=== PATIENT | male | born 1945 | race Caucasian/White ===

== ENCOUNTER 2017-02-22 17:39 | Inpatient (IN) ==
--- NOTE | 2017-02-22 17:49 | Emergency Department Note ---
Disposition Clinical Impression: Chest pain Qualifiers: Chest pain type: unspecified Qualified Code(s): R07.9 - Chest pain, unspecified CAD (coronary artery disease) Qualifiers: Coronary Disease-Associated Artery/Lesion type: [place] artery [place] vs. transplanted heart: [place] heart Associated angina: with unspecified angina Qualified Code(s): I25.119 - Atherosclerotic heart disease of [place] coronary artery with unspecified angina pectoris Disposition: Admitted As Inpatient Condition: Fair Forms: ED Satisfaction Letter Time of Disposition: 18:17 Chest Pain HPI - General Chief Complaint: ED Chest Pain Stated Complaint: chest pain Time Seen by Provider: 02/22/17 17:39 Source: patient Mode of arrival: ambulatory Limitations: no limitations Vital Signs Reviewed: Yes Nursing Notes Reviewed: Yes - History of Present Illness HPI Narrative: 71-year-old male history of hypertension, hyperlipidemia, COPD, CAD status post stents 2 in 2003, patient presented with chest pain at rest, he said chest pain in his left chest area crampy, 8/10 lasted for 3 hours earlier this morning , resolved about an hour ago prior to transfer. Has had pain for 3 days on and off. Patient was given aspirin 325 mg today at the [facility], he had a troponin and EKG EKG showed no ischemic changes, his troponin was 0.0 about an hour ago, patient has currently chest pain-free, he rates his pain to arthritis , denies shortness of breath dizziness or nausea or vomiting accompanied with chest pain. States this is not like his previous [place]. Denies any abdominal pain. Pt complaint: chest pain Onset (ago): day(s) (3) Duration: intermittent Onset: during rest Pain Location: left chest Severity: now resolved Severity scale (1-10): 0 Pain Radiation: back Improves with: nothing Worsens with: nothing Associated symptoms: Denies: nausea, vomiting, diaphoresis - Related Data Allergies Allergy/AdvReac Type Severity Reaction Status Date / Time ciprofloxacin Allergy Rash Verified 02/22/17 17:45 moxifloxacin Allergy Rash Verified 02/22/17 17:45 Sulfa (Sulfonamide Allergy Rash Verified 02/22/17 17:45 Antibiotics) Review of Systems: All systems were reviewed with historian and negative except as per below, or as documented in the HPI. Constitutional: Denies: fever, chills, weight changes Eyes: Denies: vision changes, eye pain ENT: Denies: nasal congestion, sore throat CV: Reports chest pain Resp: Denies: cough, dyspnea, wheezes, hemoptysis GI: Denies: abdominal pain, N/V/D/C Denies: dysuria, hematuria MSK: Denies: back pain, neck pain, extremity pain Neuro: Denies: BA, weakness Psych: Denies: anxiety, depression All systems ED: reviewed and negative except as stated. Chest Pain PMH - Past Medical History Medical history: Reports: COPD, hyperlipidemia, hypertension - Social History Smoking Status: Former smoker Alcohol use: Reports: none Drug use: Reports: none Physical Exam Constitutional: alert and oriented, in NAD, vital signs reviewed and wnl Neck: normal inspection, neck is supple, trachea midline Resp: normal chest inspection, CTA bilaterally, no resp distress CV: RRR, no m/g/r GI: normal inspection, Soft, NTND, BS present Back: normal inspection, no tenderness to palpation Neuro: A&O3, no gross motor or sensory deficits bilaterally MSK: normal inspection, bilateral UE and LE with normal ROM Psych: normal mood, normal affect Skin: No rashes, skin warm, dry, intact Course Course Narrative: 71-year-old male with history of CAD status post 2 stents, hypertension hyperlipidemia, presents with chest pain at rest, lasted for 3 hours has been intermittent for the last 3 days, his troponin was 0.0, not had a recent left heart catheter, interventions for stents were in 2003, patient was given aspirin at the outside facility, troponin was checked at 0.0 at 1600, plan for admission trending troponins, cardiac workup. - Reevaluation(s) Reevaluation #1: ADmitted to [facility] [employer] in stable condition,chest pain free currently, will review BMP and CBC prior to floor arrival. Trop negative initial at [place] Vital Signs Temperature 98.6 F 02/22/17 17:39 Pulse Rate 89 02/22/17 17:39 Respiratory Rate 18 02/22/17 17:39 Blood Pressure 150/98 02/22/17 17:39 O2 Sat by Pulse Oximetry 95 02/22/17 17:39 Temperature 98.6 F 02/22/17 17:39 Pulse Rate 81 02/22/17 18:12 Respiratory Rate 18 02/22/17 18:12 Blood Pressure 127/79 02/22/17 18:12 O2 Sat by Pulse Oximetry 97 02/22/17 18:12 Chest Pain - MDM Narrative Medical decision making narrative: 71-year-old male with a heart score of 5, chest pain at rest now resolved, given aspirin, admitted on the [place] to the hospitalist service in stable condition - Differential Diagnosis Likely: pneumothorax, stable angina, unstable angina pectoris, atypical chest pain, chest pain - Medical Records Medical records reviewed: Yes I reviewed the patient's medical records. - Lab Data Lab results reviewed: Yes I reviewed the patient's lab results. - Radiology Data Radiology results reviewed: Yes I reviewed the patient's radiology results. - EKG Data EKG attestation: Yes I reviewed and interpreted this EKG. EKG results narrative: 85 bpm VT 156 QRS [address] segment elevations or depressions, Rate: normal Rhythm: NSR [place]/QRS: normal Interpretation: no acute changes, normal EKG - Core Measures AMI Core Measures Followed: Yes ([facility] by [facility]) Heart Score - Score History: Moderately Suspicious EKG: Normal Age: Greater than 65 Risk Factors: Equal/Greater than 3 risk factor or history of atherosclerotic disease Troponin: Less than normal limit HEART Score Total: 5
[2017-02-22 18:35] LABS: BUN/Creatinine Ratio 15 (6-26); Blood Urea Nitrogen 19 mg/dL (8-26); Calcium 10.5 mg/dL (8.6-10.8); Carbon Dioxide 28 mEq/L (19-29); Chloride 103 mEq/L (98-109); Glucose 102 mg/dL (70-99); Osmolality,Calculated 294 (280-300); Potassium 4.5 mEq/L (3.5-4.5); Sodium 141 mEq/L (136-145); eGFR For African Americans > 60 (> 60); eGFR For Non-African Americans 57 (> 60)
[2017-02-22 18:38] LABS: Basophils # 0.1 K/mcL (0.0-0.2); Basophils % 0.7 %; Eosinophils # 0.2 K/mcL (0.0-0.6); Eosinophils % 1.7 %; Hematocrit 51.8 % (37.5-50.1); Hemoglobin 17.2 g/dL (12.9-16.9); Immature Granulocytes % 0.5 % (0-4); Lymphocytes # 3.6 K/mcL (0.6-4.6); Lymphocytes % 34.6 %; Mean Corpuscular HGB Conc 33.2 g/dL (31.6-35.5); Mean Corpuscular Hemoglobin 30.9 pg (28.0-33.3); Mean Platelet Volume 9.3 fL (9.4-12.4); Monocytes # 0.9 K/mcL (0.0-1.3); Monocytes % 8.7 %; Neutrophils # 5.5 K/mcL (1.6-8.9); Platelet Count 246 K/mcL (140-400); Red Blood Count 5.57 M/mcL (4.19-5.50); Red Cell Distribution Width 14.1 % (11.5-14.5); Segmented Neutrophils % 53.8 %
[2017-02-22] MEDS ORDERED: Naloxone 0.4 MG/ML INJ IVP PRN (20:06)
[2017-02-22] MEDS ORDERED: Acetaminophen 325 MG TABLET PO PRN (20:06)
[2017-02-22] MEDS: Gabapentin 100 MG CAPSULE PO SCH (20:49)
[2017-02-22] MEDS: Methocarbamol 750 MG TABLET PO SCH (20:50)
--- NOTE | 2017-02-22 21:29 | Internal Med History&Physical ---
Date of Encounter: 02/22/17 Time of Encounter: 21:27 Assessment and Plan (1) Chest pain Current visit: Yes Status: Acute Patient presents with chest pain radiating to left shoulder described as an ache. Initial troponin negative at 0.0. EKG without ischemic changes. He has a history of CAD with stents placed in 2003, HTN, and is a smoker. Continuous desk monitor serial troponins stress test and echocardiogram in the morning. Qualifiers: Chest pain type: unspecified Qualified Code(s): R07.9 - Chest pain, unspecified (2) COPD (chronic obstructive pulmonary disease) Current visit: Yes Status: Acute Patient with emphysema. Denies any coughing or increased shortness of breath, not in exacerbation. Wheezing on exam. Duoneb treatments QID albuterol inhaler PRN budesonide/fomotorol BID Qualifiers: COPD type: emphysema Emphysema type: unspecified Qualified Code(s): J43.9 - Emphysema, unspecified (3) Smoker Current visit: Yes Status: Acute Patient continues to smoke 2PPD despite COPD and cardiovascular disease. Discussed smoking cessation and offered encouragement. Patient denied nicotine patch. smoking cessation education ordered. (4) DVT prophylaxis Current visit: Yes Status: Acute anti-embolic stockings lovenox 40mg SQ daily Internal Medicine - H&P: HPI Chief complaint: chest pain Admitted From: Emergency Dept Plans for Post Hospital Care: Home History of present illness: Mr. Luna is a 71 year old male with hypertension, hyperlipidemia, COPD, coronary artery disease status post stent placement in 2003 presented to the emergency department today from the [place] with complaints of chest pain. Patient reports he first noticed the pain about 3 days ago describes it as an ache radiating from the left side of his chest to his left shoulder, describes it as constant, aching. Patient was given 325 mg of aspirin in the ER with improvement in pain. Denies any headache, lightheadedness, palpitations, increased shortness of breath, numbness or tingling. Evaluation in the emergency department included EKG which showed no ischemic changes, troponin was negative at 0.0, chest x-ray showed no active cardiopulmonary disease. On exam, patient alert and oriented, in no acute distress. Heart has regular rate and rhythm, lungs with diffuse mild wheezes. Past Med Surg Social Fam HX - Past Medical History Medical history: COPD, coronary artery disease, hyperlipidemia, hypertension - Past Surgical History Surgical History: angioplasty/stent - Social History Smoking Status: Current every day smoker Packs per day: 2 Smokeless Tobacco Status: No Alcohol use: none Drug use: none - Family History Mother Age: 61 Living Status: Age at : 61 Cause of : [place] Hx Family Cardiac Disorders: Yes Hx Family Respiratory Disorders: Yes Hx Family Cancer: No Hx Family GI Disorders: No Hx Family Genitourinary Disorders: No Hx Family Endocrine Disorder: No Hx Family Musculoskeletal Disorders: No Hx Family Neuromuscular Disorders: No Hx Family Neurologic Disorders: No Hx Family HEENT Disorders: No Hx Family Autoimmune Disorders: No Hx Family Reproductive Disorders: No Hx Family Psychosocial Disorders: No Hx Family Medical Disorders: No Internal Medicine - H&P: Meds Albuterol Sulfate [Albuterol Inhaler] 2 puff IH QID PRN 02/22/17 [History] Aspirin Enteric Coated [Aspirin EC] 162 mg PO DAILY 02/22/17 [History] Atorvastatin [Lipitor] 40 mg PO HS 02/22/17 [History] Budesonide/Formoterol 160/4.5 [Symbicort 160/4.5] 1 puff IH BIDR 02/22/17 [ History] Cholecalciferol (D-3) [Vitamin D] 2,000 unit PO DAILY 02/22/17 [History] Citalopram Hydrobromide [Citalopram HBr] 40 mg PO QAM 02/22/17 [History] Finasteride [Proscar] 5 mg PO DAILY 02/22/17 [History] Gabapentin [Neurontin] 100 mg PO TID 02/22/17 [History] GuaiFENesin/Dextromethorphan [Tussin Dm Syrup] 10 ml PO Q4H PRN 02/22/17 [ History] Ipratropium [Atrovent Inhaler] 2 puff IH QID 02/22/17 [History] Lisinopril 2.5 mg PO DAILY 02/22/17 [History] Loratadine [Claritin] 10 mg PO DAILY 02/22/17 [History] Methocarbamol [Robaxin-750] 1,500 mg PO BID 02/22/17 [History] Multivitamin [Multi-Day Vitamins] 1 each PO DAILY 02/22/17 [History] Nortriptyline HCl 50 mg PO HS 02/22/17 [History] [place]-3/Dha/Epa/Fish Oil [Fish Oil 1,000 mg Softgel] 1,000 mg PO BID 02/22/17 [ History] Omeprazole [PriLOSEC] 20 mg PO DAILY 02/22/17 [History] Propylene Glycol/Peg 400 [Systane 0.3-0.4% Eye Drops] 1 drop OP QID PRN [History] Topiramate [Topamax] 12.5 mg PO TID PRN 02/22/17 [History] Allergies ciprofloxacin Allergy (Verified 02/22/17 17:45) Rash moxifloxacin Allergy (Verified 02/22/17 17:45) Rash Sulfa (Sulfonamide Antibiotics) Allergy (Verified 02/22/17 17:45) Rash All Systems PM: A 10-system review of systems was performed and is negative for pertinent findings except as documented above in the HPI. - Constitutional Constitutional: no chills, no fever(s), no night sweats - EENT Eyes: no change in vision, no discharge, no pain, no photophobia Ears: no ear discharge, no ear pain, no tinnitus Nose, mouth and throat: no dysphagia, no nasal discharge, no neck pain, no sore throat - Cardiovascular Cardiovascular ROS IM: chest pain, no diaphoresis, no dyspnea, no lightheadedness, no palpitations, no syncope - Respiratory Respiratory: wheezing, no cough, no dyspnea, no excessive phlegm production - Gastrointestinal Gastrointestinal: no abdominal pain, no diarrhea, no hematemesis, no hematochezia, no melena, no nausea, no vomiting - Musculoskeletal Musculoskeletal ROS IM: no numbness, no tingling - Integumentary Integumentary IM: no rash, no unusual bruising - Neurological Neurological ROS: no confusion, no convulsions, no focal weakness, no numbness, no tingling, no tremor(s) - Hematologic/Lymphatic Hematologic/Lymphatic: no easy bruising - Constitutional Vitals: Temp Pulse Resp BP Pulse Ox 98.6 F 86 16 152/86 94 02/22/17 20:06 02/22/17 20:06 02/22/17 20:06 02/22/17 20:06 02/22/17 20:06 General appearance: Present: A&O X 3, pleasant, no acute distress - Head Head exam: Present: atraumatic, normocephalic - Eye Eye exam: Present: PERRL, conjuntiva pink, sclera anicteric Pupils: Present: PERRL - Neck Neck exam general surgery: Present: supple, trachea midline. Absent: lymphadenopathy - Respiratory Respiratory exam: Present: wheezes. Absent: accessory muscle use, rales, rhonchi - Cardiovascular Cardiovascular exam: Present: RRR, +S1, +S2. Absent: diastolic murmur, gallop, rubs, systolic murmur - GI/Abdominal GI/Abdominal exam: Present: normal bowel sounds, soft, no peritoneal signs. Absent: distended, tenderness - Extremities Exam Extremities exam: Present: warm, radial pulses palpable and symetrical. Absent : calf tenderness, cyanotic, pedal edema - Neurological Exam Neurological exam: Present: CN II-XII intact, oriented X3, no focal deficits. Absent: facial droop, speech deficit - Skin Skin exam: Present: dry, intact Internal Med - H&P Results - Labs CBC & Chem 7: 02/22/17 18:15 02/22/17 18:15 Labs: All Lab Results (24 Hours) 02/22/17 02/22/17 Range/Units 18:15 18:15 WBC 10.3 (4.3-11.1) K/mcL RBC 5.57 H (4.19-5.50) M/mcL Hgb 17.2 H (12.9-16.9) g/dL Hct 51.8 H (37.5-50.1) % MCV 93.0 (83.0-100.0) fL MCH 30.9 (28.0-33.3) pg MCHC 33.2 (31.6-35.5) g/dL RDW 14.1 (11.5-14.5) % Plt Count 246 (140-400) K/mcL MPV 9.3 L (9.4-12.4) fL Immature Gran % 0.5 (0-4) % Seg Neutrophils % 53.8 % Lymphocytes % 34.6 % Monocytes % 8.7 % Eosinophils % 1.7 % Basophils % 0.7 % Neutrophils # 5.5 (1.6-8.9) K/mcL Lymphocytes # 3.6 (0.6-4.6) K/mcL Monocytes # 0.9 (0.0-1.3) K/mcL Eosinophils # 0.2 (0.0-0.6) K/mcL Basophils # 0.1 (0.0-0.2) K/mcL Sodium 141 (136-145) mEq/L Potassium 4.5 (3.5-4.5) mEq/L Chloride 103 (98-109) mEq/L Carbon Dioxide 28 (19-29) mEq/L BUN 19 (8-26) mg/dL Creatinine 1.26 H (0.72-1.25) mg/dL Est GFR ( Amer) > 60 (> 60) Est GFR (Non-Af Amer) 57 L (> 60) BUN/Creatinine Ratio 15 (6-26) Glucose 102 H (70-99) mg/dL Calculated Osmolality 294 (280-300) Calcium 10.5 (8.6-10.8) mg/dL - Diagnostic Studies Chest x-ray Additional comments: Chest X-Ray 02/22/17 17:46 IMPRESSION: 1. No active pulmonary disease. D/ / Madan Landa MD / Madan Landa MD Interpreting Provider: Madan Landa MD
--- NOTE | 2017-02-22 21:42 | Event Note ---
Date of Encounter: 02/22/17 Time of Encounter: 21:41 Patient seen and examined with nurse practitioner. Agree with this assessment and plan. Patients with history of coronary RCC status post PCI 2003 presents with chest pain with some typical features. EKG without ischemic changes and initial troponin is normal. Will do serial cardiac markers. iF TROPONIN are all negative patient will have a pharmacological stress test tomorrow.
[2017-02-22] MEDS: Budesonide/Formoterol 160/4.5 MDI IH SCH (22:04)
[2017-02-22] MEDS: Ipratropium/Albuterol Neb 3 ML IH SCH (22:04)
[2017-02-23 04:03] LABS: Basophils # 0.1 K/mcL (0.0-0.2); Basophils % 0.6 %; Eosinophils # 0.3 K/mcL (0.0-0.6); Hematocrit 48.2 % (37.5-50.1); Hemoglobin 15.7 g/dL (12.9-16.9); Immature Granulocytes % 0.4 % (0-4); Lymphocytes # 4.6 K/mcL (0.6-4.6); Lymphocytes % 42.3 %; Mean Corpuscular HGB Conc 32.6 g/dL (31.6-35.5); Mean Corpuscular Hemoglobin 30.1 pg (28.0-33.3); Mean Corpuscular Volume 92.5 fL (83.0-100.0); Mean Platelet Volume 9.1 fL (9.4-12.4); Monocytes # 1.1 K/mcL (0.0-1.3); Monocytes % 9.9 %; Neutrophils # 4.8 K/mcL (1.6-8.9); Platelet Count 223 K/mcL (140-400); Red Blood Count 5.21 M/mcL (4.19-5.50); Segmented Neutrophils % 43.8 %
[2017-02-23 04:16] LABS: BUN/Creatinine Ratio 16 (6-26); Blood Urea Nitrogen 20 mg/dL (8-26); Calcium 9.6 mg/dL (8.6-10.8); Carbon Dioxide 24 mEq/L (19-29); Chloride 108 mEq/L (98-109); Chol/HDL Ratio 5.3 (0-4.9); Cholesterol 192 mg/dL (< 200); Glucose 89 mg/dL (70-99); HDL Cholesterol 36 mg/dL (40-59); LDL Cholesterol,Calculated 105 mg/dL (0-99); Osmolality,Calculated 294 (280-300); Potassium 3.9 mEq/L (3.5-4.5); Sodium 141 mEq/L (136-145); Triglycerides 257 mg/dL (< 150); eGFR For African Americans > 60 (> 60); eGFR For Non-African Americans 57 (> 60)
[2017-02-23] MEDS: Ipratropium/Albuterol Neb 3 ML IH SCH ×2 (04:30→11:46)
[2017-02-23] MEDS ORDERED: Regadenoson 0.4 MG/5 ML SYRINGE IVP ONE (06:47)
[2017-02-23] MEDS ORDERED: *HR* Enoxaparin 40 MG/0.4 ML SYRINGE SQ SCH (07:00)
--- NOTE | 2017-02-23 08:41 | Discharge Summary ---
Date of Encounter: 02/23/17 Time of Encounter: 13:40 - Discharge Diagnosis (1) Hypertriglyceridemia without hypercholesterolemia Priority: Secondary Status: Acute (2) Chest pain Priority: Primary Status: Acute Qualifiers: Chest pain type: unspecified Qualified Code(s): R07.9 - Chest pain, unspecified (3) CAD (coronary artery disease) Priority: Secondary Status: Acute Qualifiers: Coronary Disease-Associated Artery/Lesion type: [place] artery [place] vs. transplanted heart: [place] heart Associated angina: angina presence unspecified Qualified Code(s): I25.10 - Atherosclerotic heart disease of [place] coronary artery without angina pectoris (4) COPD (chronic obstructive pulmonary disease) Priority: Secondary Status: Acute Qualifiers: COPD type: emphysema Emphysema type: unspecified Qualified Code(s): J43.9 - Emphysema, unspecified (5) Smoker Priority: Secondary Status: Acute (6) DVT prophylaxis Priority: Secondary Status: Acute - Discharge Medications Home Medications: Albuterol Sulfate [Albuterol Inhaler] 2 puff IH QID PRN 02/22/17 [History] Aspirin Enteric Coated [Aspirin EC] 162 mg PO DAILY 02/22/17 [History] Atorvastatin [Lipitor] 40 mg PO HS 02/22/17 [History] Budesonide/Formoterol 160/4.5 [Symbicort 160/4.5] 1 puff IH BIDR 02/22/17 [ History] Cholecalciferol (D-3) [Vitamin D] 2,000 unit PO DAILY 02/22/17 [History] Citalopram Hydrobromide [Citalopram HBr] 40 mg PO QAM 02/22/17 [History] Finasteride [Proscar] 5 mg PO DAILY 02/22/17 [History] Gabapentin [Neurontin] 100 mg PO TID 02/22/17 [History] GuaiFENesin/Dextromethorphan [Tussin Dm Syrup] 10 ml PO Q4H PRN 02/22/17 [ History] Ipratropium [Atrovent Inhaler] 2 puff IH QID 02/22/17 [History] Lisinopril 2.5 mg PO DAILY 02/22/17 [History] Loratadine [Claritin] 10 mg PO DAILY 02/22/17 [History] Methocarbamol [Robaxin-750] 1,500 mg PO BID 02/22/17 [History] Multivitamin [Multi-Day Vitamins] 1 each PO DAILY 02/22/17 [History] Nortriptyline HCl 50 mg PO HS 02/22/17 [History] [place]-3/Dha/Epa/Fish Oil [Fish Oil 1,000 mg Softgel] 1,000 mg PO BID 02/22/17 [ History] Omeprazole [PriLOSEC] 20 mg PO DAILY 02/22/17 [History] Propylene Glycol/Peg 400 [Systane 0.3-0.4% Eye Drops] 1 drop OP QID PRN [History] Topiramate [Topamax] 12.5 mg PO TID PRN 02/22/17 [History] Allergies/Adverse Reactions: Allergies ciprofloxacin Allergy (Verified 02/22/17 17:45) Rash moxifloxacin Allergy (Verified 02/22/17 17:45) Rash Sulfa (Sulfonamide Antibiotics) Allergy (Verified 02/22/17 17:45) Rash Procedures/tests Complete & Pending: Procedures Performed prior 72 hours Category Date Time Status NM rosalio perf SPECT multi [NM] Routine Exams 02/22/17 20:11 Ordered EV echocardiogram Routine Y 02/22/17 20:10 Ordered SP pharm nuclear stress Routine Y 02/23/17 20:10 Ordered Date of admission: 02/22/17 18:35 [facility] care [facility] Discharging clinician: Mojgan Villarreal Anticipated date of discharge: 02/23/17 - Patient Status Disposition: Home, Self-Care Overall status at discharge: patient is back to baseline - Discharge Instructions Follow Up With: [facility],PCP [Primary Care Provider] - - Diet and Activity Activity: resume usual activities as tolerated Diet: advance to your usual diet, low fat, low cholesterol, low salt diet Interval History: Mr. Syd Luna was admitted for chest pain. His EKG and troponin series series was negative. He underwent cardiac stress test this morning. His planned to be discharged if stress test is negative. His triglycerides are elevated and he is advised to watch his diet. Counseling provided. Triglyceride to be repeated in 2-3 months and if still continues to be high and he should consult his family doctor to make further plans so that it can be brought back to normal. Her echocardiogram showed EF 6 more than 60% without any valvular abnormality or any wall motion abnormality. Mild diastolic dysfunction present. The stress Myoview test showed normal perfusion. Hospital course: Mr. Luna is a 71 year old male - Time Spent with Patient Total time spent providing and/or coordinating discharge services: Less than 30 minutes - Constitutional Vitals: Temp Pulse Resp BP Pulse Ox 98.5 F 68 16 108/67 95 02/23/17 06:33 02/23/17 06:33 02/23/17 06:33 02/23/17 06:33 02/23/17 06:33 General appearance: Present: A&O X 3, pleasant, no acute distress - Head Head exam: Present: atraumatic, normocephalic - Eye Eye exam: Present: PERRL, conjuntiva pink, sclera anicteric Pupils: Present: PERRL - Neck Neck exam general surgery: Present: supple, trachea midline. Absent: lymphadenopathy - Respiratory Respiratory exam: Present: CTAB. Absent: accessory muscle use, rales, rhonchi, wheezes - Cardiovascular Cardiovascular exam: Present: RRR, +S1, +S2. Absent: diastolic murmur, gallop, rubs, systolic murmur - GI/Abdominal GI/Abdominal exam: Present: normal bowel sounds, soft, no peritoneal signs. Absent: distended, tenderness - Extremities Exam Extremities exam: Present: warm, radial pulses palpable and symetrical. Absent : calf tenderness, cyanotic, pedal edema - Neurological Exam Neurological exam: Present: CN II-XII intact, oriented X3, no focal deficits. Absent: pronater drift, facial droop, speech deficit - Skin Skin exam: Present: dry, intact
[2017-02-23] MEDS ORDERED: Aspirin Enteric Coated 81 MG Tablet PO SCH (09:00)
[2017-02-23] MEDS ORDERED: Loratadine 10 MG TABLET PO SCH (09:00)
[2017-02-23] MEDS ORDERED: Finasteride 5 MG TABLET PO SCH (09:00)
--- NOTE | 2017-02-23 11:02 | Nuclear Medicine Stress Report ---
Regadenoson Nuclear Stress Name: Syd Luna Date of Study: 02/23/2017 Date: 1945 Ht: 69.0 in Medical Record#: [id number] Age: 71 Wt: 163.0 lb Gender: Male Order #: [id number] Location: [facility] Room: [facility] Supervising Provider: Arturo Rizvi CNP Reading Physician: Ludwig Mercado DO, FAC, [facility] Ordering Physician: Mojgan Villarreal MD Primary Care Physician: [facility] Stress Technologist: Sarah Kwong RRT [place] Erector: Quinn [place] Indications: Chest Pain Impression: Pharmacologic stress ECG is negative for ischemia at level of heart rate achieved. Gated EF > 70%. Medium sized, mild to moderate intensity, fixed inferior perfusion defect. Wall motion is normal. These findings are consistent with artifact. Perfusion imaging was negative for ischemia or infarct. History: Hypertension Hypercholesteremia History of Smoking Prior PCI Stress Test Summary: Stress Test Type: Pharmacologic Regadenoson 0.4mg/5ml given IV Baseline Information: Initial Heart Rate: 74 Blood Pressure: 130/74 Stress Information: Test Terminated Due to (primary): As per protocol Maximum Blood Pressure: 128/70 Maximum Heart Rate: 101 Percent Maximum Heart Rate Achieved: 67 Double Product: [id number] METS Reached: 1 Symptoms: No chest symptoms Nuclear Summary: SPECT myocardial perfusion imaging using Tc99m Sestamibi given intravenously was performed at rest and following cardiac stress testing. The resting images were obtained following initial dose of 11.6 mCi. Following stress an additional dose of 34.8 mCi was given at peak exercise or 30 seconds post regadenoson infusion. Medication Given: Time Medication Dose Units Route Findings: Stress Note * Resting ECG demonstrated normal sinus rhythm. * No baseline arrhythmias were noted. * Pharmacologic stress ECG is negative for ischemia at level of heart rate achieved. * No arrhythmias were noted during stress. * Patient had no chest pain during stress. * Normal hemodynamic responses to pharmacologic stress. Study Quality * Study quality is average. Gated EF > 70% * Gated EF > 70%. Left Ventricle * The left ventricle is not dilated. LVEDV = 60 mL. * Normal wall motion. Inferior Perfusion Rest * The inferior segments show a mild to moderate reduction in perfusion. Inferior Perfusion Stress * The inferior segments show a mild to moderate reduction in perfusion. TID * No evidence of transient ischemic dilatation. TID ratio = 0.97. Lung Uptake * There is no evidence of increase lung uptake. Updated by Ludwig Mercado DO, BAYLEE, XIMENA, APOLONIA on 02/23/2017 10:58:21 AM electronically signed on 02/23/2017 10:59:52 AM with status of Final
[2017-02-23] MEDS: Gabapentin 100 MG CAPSULE PO SCH (11:36)
[2017-02-23] MEDS: Methocarbamol 750 MG TABLET PO SCH (11:37)
[2017-02-23] MEDS: Budesonide/Formoterol 160/4.5 MDI IH SCH (11:45)
[2017-02-23 12:13] VITALS: BP 105/64
== END 2017-02-23 14:49 | disposition home or self-care (01) | DRG 313 ==
LOC: EMEROO 17:39 → 3NENU 18:35
PROVIDERS: ADMIT Nurse Practitioner Family; ATTEND Internal Medicine

== ENCOUNTER 2021-05-12 18:19 | Observation (INO) ==
[2021-05-12] MEDS ORDERED: methylPREDNISolone 125 MG/2 ML VIAL IVP ONE (18:42)
[2021-05-12] MEDS ORDERED: 0.9 % Sodium Chloride 1,000 ML IVC ONE (18:42)
[2021-05-12] MEDS ORDERED: Ipratropium/Albuterol Neb 3 ML IH ONE (18:42)
[2021-05-12 19:06] LABS: Basophils # 0.1 K/mcL (0.0-0.2); Basophils % 0.8 %; Eosinophils # 0.2 K/mcL (0.0-0.6); Hemoglobin 16.1 g/dL (12.9-16.9); Immature Granulocytes % 0.5 % (0-4); Lymphocytes # 2.8 K/mcL (0.6-4.6); Lymphocytes % 26.1 %; Mean Corpuscular HGB Conc 32.2 g/dL (31.6-35.5); Mean Corpuscular Hemoglobin 29.8 pg (28.0-33.3); Mean Corpuscular Volume 92.6 fL (83.0-100.0); Mean Platelet Volume 9.1 fL (9.4-12.4); Monocytes # 0.9 K/mcL (0.0-1.3); Monocytes % 8.9 %; Neutrophils # 6.6 K/mcL (1.6-8.9); Platelet Count 267 K/mcL (140-400); Red Cell Distribution Width 14.4 % (11.5-14.5); Segmented Neutrophils % 61.7 %; White Blood Count 10.6 K/mcL (4.3-11.1)
[2021-05-12 19:35] LABS: Alanine Aminotransferase 10 Units/L (7-52); Albumin 4.1 g/dL (3.5-5.7); Albumin/Globulin Ratio 1.2 (1.1-2.2); Alkaline Phosphatase 69 Units/L (34-104); Aspartate Amino Transferase 12 Units/L (13-39); BUN/Creatinine Ratio 9 (6-26); Bilirubin,Direct 0.1 mg/dL (0.0-0.2); Bilirubin,Indirect 0.4 mg/dL (0.0-1.0); Bilirubin,Total 0.5 mg/dL (0.3-1.0); Blood Urea Nitrogen 11 mg/dL (8-23); Calcium 10.2 mg/dL (8.6-10.3); Carbon Dioxide 27 mEq/L (23-29); Chloride 102 mEq/L (98-107); Globulin 3.4 g/dL (2.4-3.5); Glucose 101 mg/dL (70-105); Osmolality,Calculated 286 (280-300); Potassium 4.2 mEq/L (3.5-5.1); Sodium 138 mEq/L (136-145); Total Protein 7.5 g/dL (6.4-8.9); Troponin I < 0.03 ng/mL (< 0.04); eGFR For African Americans > 60 (> 60); eGFR For Non-African Americans 60 (> 60)
[2021-05-12 20:20] LABS: Adenovirus Not Detected (Not Detect); Bordetella Pertussis Not Detected (Not Detect); Chlamydophila pneumoniae Not Detected (Not Detect); Coronavirus 229E Not Detected (Not Detect); Coronavirus HKU1 Not Detected (Not Detect); Coronavirus NL63 Not Detected (Not Detect); Coronavirus OC43 Not Detected (Not Detect); Human Metapneumovirus Not Detected (Not Detect); Human Rhinovirus/Enterovirus Not Detected (Not Detect); Influenza A Subtype 2009 H1 Not Detected (Not Detect); Influenza B Not Detected (Not Detect); Mycoplasma pneumoniae Not Detected (Not Detect); Parainfluenza Virus 1 Not Detected (Not Detect); Parainfluenza Virus 2 Not Detected (Not Detect); Parainfluenza Virus 3 Not Detected (Not Detect); Parainfluenza Virus 4 Not Detected (Not Detect); Respiratory Syncytial Virus Not Detected (Not Detect); SARS-CoV-2 Not Detected (Not Detect)
[2021-05-12] MEDS ORDERED: Acetaminophen 325 MG TABLET PO PRN (21:44)
[2021-05-12] MEDS ORDERED: Naloxone 0.4 MG/ML INJ IVP PRN (21:44)
[2021-05-12] MEDS ORDERED: Ondansetron 4 MG/2 ML VIAL IVP PRN (21:44)
[2021-05-12] MEDS ORDERED: *HR* HYDROcodone/Acet 5/325 mg TABLET PO PRN (21:44)
[2021-05-12] MEDS: Ipratropium/Albuterol Neb 3 ML IH SCH (22:30)
[2021-05-12] MEDS: *HR* Heparin 5,000 UNIT/ML VIAL SQ SCH (23:22)
[2021-05-13 02:51] LABS: Basophils % 0.4 %; Hematocrit 48.9 % (37.5-50.1); Hemoglobin 15.7 g/dL (12.9-16.9); Immature Granulocytes % 0.5 % (0-4); Lymphocytes # 1.2 K/mcL (0.6-4.6); Lymphocytes % 16.2 %; Mean Corpuscular HGB Conc 32.1 g/dL (31.6-35.5); Mean Corpuscular Hemoglobin 29.3 pg (28.0-33.3); Mean Corpuscular Volume 91.2 fL (83.0-100.0); Mean Platelet Volume 9.2 fL (9.4-12.4); Monocytes # 0.1 K/mcL (0.0-1.3); Monocytes % 0.7 %; Neutrophils # 6.2 K/mcL (1.6-8.9); Platelet Count 256 K/mcL (140-400); Red Blood Count 5.36 M/mcL (4.19-5.50); Red Cell Distribution Width 14.1 % (11.5-14.5); Segmented Neutrophils % 82.2 %; White Blood Count 7.5 K/mcL (4.3-11.1)
[2021-05-13 02:57] LABS: INR 1.2; Prothrombin Time 13.5 Seconds (9.4-12.1)
[2021-05-13 03:00] LABS: Activated Partial Thrombo Time 38.3 Seconds (26.0-36.0)
[2021-05-13 03:10] LABS: BUN/Creatinine Ratio 12 (6-26); Blood Urea Nitrogen 14 mg/dL (8-23); Calcium 9.8 mg/dL (8.6-10.3); Carbon Dioxide 24 mEq/L (23-29); Chloride 104 mEq/L (98-107); Glucose 165 mg/dL (70-105); Magnesium 1.6 mg/dL (1.6-2.6); Osmolality,Calculated 288 (280-300); Phosphorous 2.5 mg/dL (2.7-4.5); Potassium 4.1 mEq/L (3.5-5.1); Sodium 137 mEq/L (136-145); eGFR For African Americans > 60 (> 60); eGFR For Non-African Americans > 60 (> 60)
[2021-05-13] MEDS: Ipratropium/Albuterol Neb 3 ML IH SCH ×4 (04:07→21:58)
[2021-05-13] MEDS: *HR* Heparin 5,000 UNIT/ML VIAL SQ SCH ×3 (05:05→20:37)
[2021-05-13] MEDS ORDERED: Dextrose Gel 15 GM/37.5 ML TUBE PO PRN ×2 (07:39)
[2021-05-13] MEDS ORDERED: D5% in Water 1,000 ML IVC PRN (07:39)
[2021-05-13] MEDS ORDERED: *HR* Dextrose 50 % in Water (Vial) 50 ML VIAL IVP PRN (07:39)
[2021-05-13] MEDS ORDERED: *HR* Propofol 200 MG/20 ML VIAL IVP ONE (09:58)
[2021-05-13] MEDS ORDERED: Ondansetron 4 MG/2 ML VIAL ONE (09:59)
[2021-05-13] MEDS ORDERED: Lidocaine -MPF 4% 5 ML AMPUL ONE (09:59)
[2021-05-13] MEDS ORDERED: *HR* Succinylcholine 200 MG/10 ML VIAL IVP ONE (09:59)
[2021-05-13] MEDS ORDERED: Lidocaine -MPF 2% 2 ML VIAL ONE (09:59)
[2021-05-13] MEDS ORDERED: *HR* FentaNYL (PF) 100 MCG/2 ML VIAL ONE (10:00)
[2021-05-13] MEDS ORDERED: Nicotine 2 MG GUM BC PRN (10:30)
[2021-05-13] MEDS ORDERED: *HR* HYDROmorphone PF 0.5 MG/0.5 ML SYRINGE IVP PRN (10:44)
[2021-05-13] MEDS ORDERED: Ondansetron 4 MG/2 ML VIAL IVP PRN (10:44)
[2021-05-13] MEDS ORDERED: *HR* OxyCODONE Immed Rel 5 MG TABLET PO PRN (10:44)
[2021-05-13] MEDS ORDERED: Promethazine 6.25 MG in Water for inj. (sterile) 20 ML IVPB PRN (10:44)
[2021-05-13] MEDS ORDERED: Albuterol 2.5 MG/3 ML NEBULIZER IH ONE (12:13)
[2021-05-13] MEDS ORDERED: Albuterol 2.5 MG/3 ML NEBULIZER ONE (12:15)
[2021-05-13] MEDS: Nicotine 21 MG PATCH.TD24 TD SCH (12:44)
[2021-05-13] MEDS: predniSONE 20 MG TABLET PO SCH (12:44)
[2021-05-13] MEDS ORDERED: Azithromycin 250 MG TABLET PO SCH (19:30)
[2021-05-13] MEDS: Chlorhexidine Rinse 15 ML MOUTHWASH MM SCH (20:37)
[2021-05-13] MEDS: Budesonide/Formoterol 160/4.5 1 PUFF INH IH SCH (21:58)
[2021-05-14] MEDS: Ipratropium/Albuterol Neb 3 ML IH SCH ×2 (03:38→10:22)
[2021-05-14 05:02] LABS: Hematocrit 45.7 % (37.5-50.1); Hemoglobin 14.8 g/dL (12.9-16.9); Mean Corpuscular HGB Conc 32.4 g/dL (31.6-35.5); Mean Corpuscular Hemoglobin 29.8 pg (28.0-33.3); Mean Platelet Volume 9.5 fL (9.4-12.4); Platelet Count 294 K/mcL (140-400); Red Blood Count 4.97 M/mcL (4.19-5.50); Red Cell Distribution Width 14.6 % (11.5-14.5)
[2021-05-14 05:20] LABS: BUN/Creatinine Ratio 19 (6-26); Blood Urea Nitrogen 25 mg/dL (8-23); Calcium 9.3 mg/dL (8.6-10.3); Carbon Dioxide 22 mEq/L (23-29); Chloride 104 mEq/L (98-107); Glucose 139 mg/dL (70-105); Magnesium 2.4 mg/dL (1.6-2.6); Osmolality,Calculated 291 (280-300); Phosphorous 2.6 mg/dL (2.7-4.5); Potassium 3.9 mEq/L (3.5-5.1); Sodium 137 mEq/L (136-145); eGFR For African Americans > 60 (> 60); eGFR For Non-African Americans 53 (> 60)
[2021-05-14] MEDS: *HR* Heparin 5,000 UNIT/ML VIAL SQ SCH (06:26)
[2021-05-14] MEDS: Nicotine 21 MG PATCH.TD24 TD SCH (07:29)
[2021-05-14] MEDS: Chlorhexidine Rinse 15 ML MOUTHWASH MM SCH (07:29)
[2021-05-14] MEDS: predniSONE 20 MG TABLET PO SCH (07:29)
[2021-05-14 10:24] VITALS: BP 133/78; PULSE 101; TEMP 97.8
[2021-05-14 10:29] VITALS: O2SAT 95
[2021-05-14] MEDS: Budesonide/Formoterol 160/4.5 1 PUFF INH IH SCH (10:35)
[2021-05-14 14:46] LABS: Appearance of Body Fluid Cloudy (Clear); Volume of Body Fluid 15 mL
== END 2021-05-14 12:13 | disposition home or self-care (01) ==
LOC: EMEROOARM 18:19 → 2ANU 18:19 → SUATTDRO 21:28 → 2ANU 22:29
PROVIDERS: ADMIT Internal Medicine; ATTEND Internal Medicine